=== PATIENT | male | born 1960 | race Caucasian/White ===

== ENCOUNTER → 2017-09-23 | Outpatient (CLI) | payer OTHER ==
[~2017-09-23] MED LIST: ACET-1311 PO; IBUP600T44 PO; MECL1CHW4 PO; OMEP40CA PO; PRLSR20 PO
--- NOTE | 2017-09-23 13:46 | DIAGNOSTIC IMAGING REPORT ---
L ELBOW MIN 3 VIEWS ROUTINE CLINICAL HISTORY: Left elbow pain following injury. COMPARISON: None FINDINGS: Alignment of the left elbow is anatomic. There is no fracture or joint effusion. Joint spaces are preserved. IMPRESSION: No acute fracture or joint effusion of the left elbow. Electronically signed by: Roberto Arana M.D. 09/23/2017 1:45 PM Dictated Date/Time: 09/23/2017 1:44 PM
== END | disposition home or self-care (01) ==
LOC: C.RAD1850 13:30
PROVIDERS: ATTEND Nurse Practitioner
DX: M25.522 Pain in left elbow (principal)